=== PATIENT | female | born 1945 | race Caucasian/White ===

== ENCOUNTER → 2018-02-10 | Outpatient (CLI) | payer OTHER | LOC: M.RAD 11:48 | DX: J18.9 Pneumonia, unspecified organism (principal); M47.814 Spondylosis without myelopathy or radiculopathy, thoracic region; M19.012 Primary osteoarthritis, left shoulder; M19.011 Primary osteoarthritis, right shoulder ==

== ENCOUNTER → 2018-04-22 | Outpatient (CLI) | payer OTHER | LOC: M.RAD 13:38 | DX: M79.672 Pain in left foot (principal); M79.675 Pain in left toe(s); R60.9 Edema, unspecified ==

== ENCOUNTER → 2018-06-03 | Outpatient (CLI) | payer OTHER | LOC: M.RAD 14:16 | DX: I89.9 Noninfective disorder of lymphatic vessels and lymph nodes, unspecified (principal); H40.89 Other specified glaucoma; R05 Cough; R06.02 Shortness of breath ==

== ENCOUNTER → 2018-09-10 | Outpatient (CLI) | payer OTHER | LOC: M.RAD 15:44 | DX: R06.02 Shortness of breath (principal) ==

== ENCOUNTER → 2019-06-29 | Outpatient (CLI) | payer OTHER | LOC: M.RAD 14:29 | DX: J44.1 Chronic obstructive pulmonary disease with (acute) exacerbation (principal); J98.4 Other disorders of lung ==

== ENCOUNTER 2019-08-20 13:47 | Emergency (ER) | payer OTHER ==
[~2019-08-20] VITALS: Ht 167.6 cm; Wt 102.1 kg
[2019-08-20] MEDS ORDERED: OLMESARTAN-HCT1 EACH PO (14:02)
[2019-08-20] MEDS ORDERED: PROPAFENONE 15150 MG PO (14:02)
[2019-08-20] MEDS ORDERED: BONIVA150 MG PO (14:03)
[2019-08-20] MEDS ORDERED: MONTELUKAST SODI4 M1 PO (14:03)
[2019-08-20] MEDS ORDERED: LEVO-T75 MCG PO (14:03)
[2019-08-20] MEDS ORDERED: VITAMIN D310 MC2 PO (14:04)
[2019-08-20] MEDS ORDERED: IPRATROPIUM BRO15 ML NASAL (14:04)
[2019-08-20] MEDS ORDERED: QVAR REDIHALE10.6 G1 INH (14:04)
[2019-08-20] MEDS ORDERED: ALLEGRA ALLERG180 MG PO (14:04)
[2019-08-20] MEDS ORDERED: ALEVE220 M1 PO (14:05)
[2019-08-20] MEDS ORDERED: TESSALON PERLE100 M1 PO (14:05)
[2019-08-20 14:45] LABS: HEMATOCRIT 37.5 % (37.0-47.0); HEMOGLOBIN 12.7 gm/dL (12.0-15.0); MCHC 33.8 g/dL (28.0-37.0); MCV 88.6 fL (80.0-100.0); MPV 7.4 fl. (7.2-11.1); NUCLEATED RBCS 0 /100WBC; PLATELET COUNT* 223 thou/uL (150-400); RBC 4.24 mil/uL (4.20-5.00); RDW-CV 14.9 % (10.5-14.5); WBC 7.8 thou/uL (4.0-11.0)
[2019-08-20 14:55] LABS: APTT 30.6 Seconds (25.0-31.3); PROTIME 10.7 Seconds (9.20-11.50)
--- NOTE | 2019-08-20 15:00 | EKG ---
[place] [address] ELECTROCARDIOGRAM REPORT Name: SIMON ALDANA Room: [facility]#: [id number] Admission: 08/20/19 Attend Phys: Discharge: Date of : 47 Date of Service: 08/20/19 1358 Report #: [id number] THIS REPORT FOR: //name// [facility] ED Test Date: 2019-08-20 Test Time: 13:58:13 Pat Name: SIMON ALDANA Department: Room: Gender: Derrick Operator: : [id number] Requested By: Romario Rene Order Number: [id number] MD: Barrett Costa Measurements Intervals [place] Rate: 63 P: 14 [place]: 197 QRS: 6 QRSD: 121 T: 73 QT: 413 QTc: 423 Interpretive Statements Sinus rhythm Nonspecific intraventricular conduction delay No previous ECG available for comparison Electronically Signed On 08-20-2019 14:59:07 CDT by Barrett Costa [email or web address] <ELECTRONICALLY SIGNED> By: Barrett Costa MD, [facility] 08/20/19 1459 1358 1358 Barrett Costa MD, FACC /EPI
[2019-08-20 15:08] LABS: CALCIUM 8.4 mg/dL (8.5-10.1); CREATININE 0.7 mg/dL (0.6-1.3); POTASSIUM 3.6 mmol/L (3.5-5.1)
[2019-08-20 15:12] LABS: ALBUMIN 3.6 g/dL (3.4-5.0); MAGNESIUM 1.8 mg/dL (1.8-2.4); TOTAL BILIRUBIN 0.4 mg/dL (<0.1-1.0)
[2019-08-20 15:21] LABS: ABSOLUTE LYMPHOCYTES 1.8 thou/uL (0.8-5.3); ABSOLUTE MONOCYTES 1.2 thou/uL (0.0-1.2); ABSOLUTE NEUTROPHILS 3.8 thou/uL (1.6-8.1); ANISOCYTOSIS Occasional; PLATELET ESTIMATE ADEQUATE; POIKILOCYTOSIS Occasional
[2019-08-20] MEDS ORDERED: VENTOLIN HFA 1818 GM INH (15:34)
[2019-08-20] MEDS ORDERED: PREDNISONE50 MG PO (15:34)
[2019-08-20] MEDS ORDERED: ALBUTEROL2.5 MG/0.5 INH (15:34)
[2019-08-20 15:38] VITALS: BP 142/79
== END 2019-08-20 15:39 | disposition home or self-care (01) ==
LOC: M.ERS 13:47
PROVIDERS: Emergency Medicine Emergency Medical Services
DX: J44.1 Chronic obstructive pulmonary disease with (acute) exacerbation (principal); I10 Essential (primary) hypertension; Z88.0 Allergy status to penicillin